=== PATIENT | male | born 1940 | race Caucasian/White ===

== ENCOUNTER 2024-04-28 01:17 | Inpatient (IN) | payer MEDICARE, OTHER, SELFPAY ==
[2024-04-27 22:24] VITALS: BP 140/81
[2024-04-27 22:26] VITALS: BP 140/81; PULSE 135; PULSE 2
[2024-04-27] MEDS: NSS 1000 IV (22:37)
[2024-04-27 22:40] LABS: % Basophils 0.4 % (0-2); % Immature Granulocytes 0.6 % (0-0.5); % Lymphocytes 11.4 % (20.5-51.1); % Monocytes 13.2 % (1.7-9.3); % Neutrophils 73.4 % (42.2-75.2); Absolute Eosinophils 0.1 10^3/uL (0-0.7); Absolute Lymphocytes 0.6 10^3/uL (1.2-3.4); Absolute Monocytes 0.7 10^3/uL (0.1-0.6); Absolute Neutrophils 3.7 10^3/uL (1.4-6.5); Hematocrit 40.2 % (39.0-52.0); Hemoglobin 13.2 g/dL (13.0-18.0); Mean Corp Hgb Conc. 32.8 g/dL (33.0-37.0); Mean Corpuscular Volume 88.4 fL (80.0-94.0); Nucleated Red Blood Cells % 0 % (-); Platelet Count 223 10^3/uL (130-400); Red Blood Cell Count 4.55 10^6/uL (4.70-6.10); Red Cell Dist. Width 13.4 % (11.5-14.5); White Blood Cell Count 5.1 10^3/uL (4.8-10.8)
[2024-04-27] MEDS: OFIRMEV 100 IV (22:51)
[2024-04-27 22:52] LABS: Lactic Acid 3.3 mmol/L (0.7-2.0)
[2024-04-27 22:54] LABS: ALT (SGPT) 12 U/L (0-50); AST (SGOT) 22 U/L (17-59); Albumin 3.6 g/dl (3.5-5.0); Alkaline Phosphatase 71 U/L (38-126); Blood Urea Nitrogen 36 mg/dl (9-20); Calcium 8.6 mg/dl (8.4-10.2); Carbon Dioxide 23 mmol/L (22-30); Chloride 104 mmol/L (98-107); Glucose 164 mg/dl (70-99); Potassium 3.5 mmol/L (3.5-5.1); Sodium 138 mmol/L (135-145); Total Bilirubin 0.4 mg/dl (0.2-1.3); Total Protein 7.1 g/dl (6.3-8.2); eGFR 49.87
[2024-04-27 23:02] LABS: Urine Albumin Trace (Neg - Trace); Urine Bilirubin 1+ (Negative); Urine Character Clear (Clear); Urine Color Yellow; Urine Glucose Negative (Negative); Urine Ketone Trace (Negative); Urine Leukocyte Negative (Negative); Urine Nitrite Negative (Negative); Urine Occult Blood Trace (Negative); Urine Specific Gravity 1.025 (<1.030); Urine Urobilinogen Negative (Neg - 1+)
--- NOTE | 2024-04-27 23:17 | ED.GENMED ---
History of Present Illness
General
Chief Complaint: Breathing Problem
Source: family and ambulance crew
Exam Limitations: clinical condition and dementia
Time Seen by Provider: 04/27/24 22:25
Travel History
Have you had any contact with someone who has COVID-19?: Unable to Answer
Do you have any symptoms of coronavirus? Fever > 100 degrees, chills, cough, shortness of breath, sore throat, loss of taste or smell, muscle aches, or headache?: Unable to Answer
History of Present Illness
History of Present Illness:
83-year-old male sent in for respiratory distress hypoxia. This apparently started a few hours before ER arrival. Patient is normally near unresponsive. Has to be fed to eat. Significant dementia. No other history available.
Past History
Past History
ED Past Medical History: CAD, COPD, CVA, HTN, Hypercholesterolemia, Psychiatric (Anxiety) and Other (Dementia)
ED Past Surgical History: Other
Social History
Tobacco: Former smoker
Alcohol: None
Personal:
Living: with family
Review of Systems
Review of Systems
Unable to obtain full review of systems at this time due to: dementia
All Other Systems: Not applicable
Phy Exam
Physical Exam
Physical Exam:
GENERAL: Near unresponsive. Does not withdraw to pain and stimuli. Does not follow commands. Chronically ill-appearing.
EYE: Orbits normal. Eyes closed
NECK: Supple
CARDIAC: Regular rate and rhythm without any obvious murmurs.
LUNGS: Coarse rhonchi. Mild tachypnea.
ABDOMEN: Soft, without focal tenderness or distention
NEUROLOGICAL: Near unresponsive. Nonfocal however
SKIN: Warm and dry, no rash or lesion, no discoloration, skin intact.
MUSCULOSKELETAL: Chronic edema. Good color
Scores
Heart Failure Risk
Heart Failure Risk Score: Not Applicable
Course
Orders/Labs/Results
Orders:
Orders
04/27/24 22:27
EKG [Electrocardiogram (*1)] Urgent
Reason for Study: Shortness of Breath
EKG- Treatment ONCE
04/27/24 22:29
Electrocardiogram (*1) Urgent
Reason for Study: Other
Other Reason for Exam: Possible Sepsis
Cardiac Monitoring- Treatment ONCE
IV Insert/Care/Rem.- Treatment PRN
Straight cath- Treatment ONCE
CR Chest Portable - 1 View Urgent
Comment:
Reason For Exam: sob
Reason Study Needs to be Portable: Unable to Transport
O2 Therapy [RESP] Urgent
Titrate/Wean O2 to maintain O2 sat greater than (%): 93
Special Instructions: TO MAINTAIN CONTINUOUS O2 SATS > OR = 93%
Pulse Ox/cont/shift [RESP] Urgent
Quantity: 1
Special Instructions: CONTINUOUS
04/27/24 22:30
Electrocardiogram (*1) Urgent
Reason for Study: Other
Other Reason for Exam: sepsis
Cardiac Monitoring- Treatment ONCE
EKG- Treatment ONCE
IV Insert/Care/Rem.- Treatment PRN
0.9% Sodium Chloride 1000 ml [Nss] 1,000 ml IV BOLUS
Acetaminophen 1000MG/100Ml [Ofirmev] 1,000 mg in 100 ml IV ONCE
Acetaminophen IV Indication:: ED Narcotic Naive Pt-ONCE
Pulse Ox/cont/shift [RESP] Urgent
Quantity: 1
04/27/24 22:32
Basic Metabolic Panel Urgent
Complete Blood Count/With Diff Urgent
Comprehensive Metabolic Panel Urgent
Lactic Acid Q4H
Comment: ON ICE, CANCEL 2ND ORDER IF FIRST LACTIC ACID LEVEL <2
Urinalysis Reflex To Culture Urgent
Date Specimen was Collected: 04/27/24
Time Specimen was Collected: 22:30
Urine Microscopic Reflex Cult Urgent
Blood Culture Q30M
ASHLEY Source: Blood/Venous
Specimen Description:
Comment: FROM 2 SEPARATE SITES
Blood Culture Q30M
ASHLEY Source: Blood/Venous
Specimen Description:
Comment: FROM 2 SEPARATE SITES
Urine Culture Urgent
ASHLEY Source: U
Specimen Description:
Date Specimen was Collected: 04/27/24
Time Specimen was Collected: 22:30
04/27/24 23:39
COVID-19 Antigen Urgent
Source: Nasal Swab
Influenza A+B Rapid Molecular Urgent
ASHLEY Source: Nasal Swab
Specimen Description:
04/27/24 23:41
Aztreonam [Azactam] 2,000 mg IV NOW STA
04/28/24 02:30
Lactic Acid Q4H
Comment: ON ICE, CANCEL 2ND ORDER IF FIRST LACTIC ACID LEVEL <2
Abnormal Lab Results
04/27/24
22:32
RBC 4.55 L 10^6/uL
(4.70-6.10)
MCHC 32.8 L g/dL
(33.0-37.0)
Absolute Lymphs (auto) 0.6 L 10^3/uL
(1.2-3.4)
Absolute Monos (auto) 0.7 H 10^3/uL
(0.1-0.6)
Immature Gran % 0.6 H %
(0-0.5)
Lymphocytes % 11.4 L %
(20.5-51.1)
Monocytes % 13.2 H %
(1.7-9.3)
BUN 36 H mg/dl
(9-20)
Creatinine 1.4 H mg/dL
(0.7-1.3)
Glucose 164 H mg/dl
(70-99)
Lactic Acid 3.3 H mmol/L
(0.7-2.0)
Urine Ketones Trace A
(Negative)
Ur Occult Blood Reflex Trace A
(Negative)
Urine Bilirubin 1+ A
(Negative)
Urine RBC 3-6 A /HPF
(0-2)
Urine Bacteria (Reflex) Moderate A
(Negative)
04/27/24 22:32
04/27/24 22:32
Vital Signs
Initial and Last Documented VS:
Initial Vital Signs
Temp Pulse Resp BP Pulse Ox
101.4 F H 142 26 140/81 93
04/27/24 22:24 04/27/24 22:24 04/27/24 22:24 04/27/24 22:24 04/27/24 22:24
Last Documented Vital Signs
Temp Pulse Resp BP Pulse Ox
101.4 F H 114 15 140/81 93
04/27/24 22:24 04/28/24 00:00 04/28/24 00:00 04/27/24 22:26 04/28/24 00:00
MDM/Problems Addressed
Differential Diagnosis Includes:
Patient presents in respiratory distress. Apparently near neurologic baseline. Discussed with daughter. No intubation no aggressive therapy. Most concerned with keeping him comfortable and treating simpler issues. Lactic acid elevated.
*Radiology
Radiology exam reviewed: radiology read reviewed (Negative)
*Pulse Oximetry
Patient hypoxic: yes
*EKG
Interpreted by ED Provider?: Yes
Interpretation: abnormal
Comparison EKG: changes noted
Heart Rate: 135
Rate: tachycardiac
Rhythm: sinus
[place]: normal axis
Interval: normal interval
QRS Pattern: normal QRS
Ischemia: non-specific ST changes
*Donation Worker Interpretation
Rate: tachycardiac
Interpretation: abnormal
Heart Rate: 120
Rhythm: sinus
*Critical Care Note
Total Time (30-74mins, 75-104mins- exclusive of procedures): Not Applicable
Data Reviewed
Review of Other/Old Records Reveals: Labs, Records and Discharge Summary
Update Note
Update Note:
Sepsis/respiratory distress. Will cover with aztreonam. No intubation no aggressive therapy. Changed to high flow nasal cannula
ED Attending Note
-
Portions of this chart may have been created with voice recognition software.� Occasional wrong word or��sound alike� substitutions may have occurred due to the inherent limitations of voice recognition software.
Discharge Plan
Departure
Patient Disposition: Admit
Date of Disposition: 04/27/24
Time of Disposition: 23:42
Presentation/result/management discussed w/ accepting MD/DO: Hospitalist
Discharge Problem:
Respiratory distress, Sepsis, Severe dementia
Prescriptions:
No Action
aspirin 81 MG tablet,chewable
81 mg PO DAILY
acetaminophen [Tylenol] 325 mg Tablet
650 mg PO Q4HPRN PRN (Reason: mild pain/fever>100.4)
melatonin 3 mg Tablet
3 mg PO HS
magnesium hydroxide [Milk of Magnesia] 400 mg/5 mL Suspension
2,400 mg PO HSPRN PRN (Reason: if no bm aftr miralax)
bisacodyl [Dulcolax (bisacodyl)] 10 mg Suppository
10 mg [place] DAILYPRN PRN (Reason: if no bm on 3rd day/if mom is ineffective)
divalproex 125 mg Capsule, Delayed Rel Sprinkle
125 mg PO BID@0830,1830
rivastigmine tartrate 3 mg Capsule
3 mg PO BID
clonazepam 0.5 MG tablet
0.5 mg PO TID
sertraline 50 MG tablet
50 mg PO DAILY
Patient Comments:
04/27/2024: taken w/ 100mg = 150mg
Refresh Classic (PF) 10 DROPS dropperette
1 drops BOTH EYES QID
Ativan Gel
1 applic topical BIDPRN PRN (Reason: anxiety)
ipratropium-albuterol 0.5 mg-3 mg(2.5 mg base)/3 mL solution for nebulization
3 ml INHALATION R Q6
Patient Comments:
04/27/2024: @ 0000,0600,1200,1800
sertraline 100 mg Tablet
100 mg PO DAILY
Patient Comments:
04/27/2024: taken w/ 50mg = 150mg
guaifenesin 100 mg/5 mL Liquid
200 mg PO Q8H
Patient Comments:
04/27/2024: @ 0000,0800,1600
atropine 1 % Drops
2 drp sublingual Q4HPRN PRN (Reason: secretions)
Referrals:
UNKNOWN - PT DOES,NOT KNOW [Family Provider] -
Interventions
Interventions:
*Risk Screen - Suicide Last Done: 04/28/24 00:02
*General Assessment Last Done: 04/28/24 00:02
*Neglect/Abuse Screening Last Done: 04/28/24 00:02
*ED COVID-19 Vaccine History Last Done: 04/28/24 00:02
Discharge Date and Time
Print Language: CONGOLESE
[2024-04-27 23:19] LABS: Urine Bacteria Moderate (Negative); Urine Mucus Few
[2024-04-28] VITALS (16 sets, daily range): BP systolic 97–155; BP diastolic 53–119; BMI 25.4
[2024-04-28 00:01] LABS: COVID-19 Antigen Negative (Negative)
[2024-04-28] MEDS: AZACTAM 2000 MG IV (00:34)
--- NOTE | 2024-04-28 00:39 | HPS.HSE ---
Family Physician
-
Family Physician: NOT KNOW UNKNOWN - PT DOES
Chief Complaint
-
Resp Distress
History of Present Illness
Patient is an 83y M with PMH significant for dementia, ASCVD and COPD who presents to ED from [place] in respiratory distress. Patient reportedly noted to have 'audible gurgling' at MI this evening. Temp = 100, SpO2 in the mid 80s on room air.
Facility discussed with family and patient sent to the ED for further evaluation. Patient has baseline dementia and is unable to contribute to this history.
Patient was initially placed on BiPAP in the ED. He is currently on HFNC with SpO2 in the 90s.
Medical History
Past Medical History
Past Medical History: Reports Other
Additional Past Medical History:
Lewy Body Dementia with Behavioral Disturbance
ASCVD
COPD
Past Surgical History: Reports Other
Additional Past Surgical History:
Unknown
Social History
Unable to obtain full social history at this time due to: Patient Non-verbal
Family History
Family History: Unable to Obtain
Allergies / Home Medications
Allergies reflects when Allergies were last updated in [facility].
Home Medications with original date entered in [facility]
Allergy/Medication List:
Allergies
Allergy/AdvReac Type Severity Reaction Status Date / Time
crab Allergy Unknown Unknown Verified 01/09/23 14:47
amoxicillin trihydrate Allergy Unknown Verified 01/09/23 14:47
[From Augmentin]
erythromycin base Allergy Unknown Verified 01/09/23 14:47
potassium clavulanate Allergy Unknown Verified 01/09/23 14:47
[From Augmentin]
Wbvulmv-QZD-DfA Reductase Allergy 'muscle Verified 01/09/23 14:47
Inhibitor pain'
[Ttrrcys-Foc-Bsj Reductase
Inhibitor]
Home Medications
aspirin 81 mg chewable tablet 81 mg PO DAILY Blood clot prevention/tx 09/05/18
acetaminophen 325 mg tablet (Tylenol) 650 mg PO Q4HPRN PRN mild pain/fever>100.4 01/09/23
bisacodyl 10 mg rectal suppository (Dulcolax (bisacodyl)) 10 mg VA DAILYPRN PRN if no bm on 3rd day/if mom is ineffective 01/09/23
clonazepam 0.5 mg tablet 0.5 mg PO TID Mental Health/Anxiety 01/09/23
divalproex 125 mg capsule,delayed release sprinkle 125 mg PO BID@0830,1830 Seizures 01/09/23
magnesium hydroxide 400 mg/5 mL oral suspension (Milk of Magnesia) 2,400 mg PO HSPRN PRN if no bm aftr miralax 01/09/23
melatonin 3 mg tablet 3 mg PO HS Sleep 01/09/23
polyvinyl alcohol-povidone (PF) 1.4 %-0.6 % eye drops in a dropperette (Refresh Classic (PF)) 1 drops BOTH EYES QID Eye condition 01/09/23
rivastigmine tartrate 3 mg capsule 3 mg PO BID Neurological Condition 01/09/23
sertraline 50 mg tablet 50 mg PO DAILY Depression 01/09/23
Ativan Gel 1 applic topical BIDPRN PRN anxiety 04/27/24
atropine 1 % eye drops 2 drp sublingual Q4HPRN PRN secretions 04/27/24
guaifenesin 100 mg/5 mL oral liquid 200 mg PO Q8H 04/27/24
ipratropium 0.5 mg-albuterol 3 mg (2.5 mg base)/3 mL nebulization soln 3 ml inhalation R Q6 04/27/24
sertraline 100 mg tablet 100 mg PO DAILY 04/27/24
Review of Systems
-
Unable to obtain full review of systems at this time due to: Patient Non-verbal
Physical Exam
Vital Signs
Vital Signs
Temp Pulse Resp BP Pulse Ox
101.4 F H 114 15 140/81 93
04/27/24 22:24 04/28/24 00:00 04/28/24 00:00 04/27/24 22:26 04/28/24 00:00
Physical Exam
General: Other (83y M is awake and appears slightly restless / /agitated - improved from initial arrival.)
HEENT: Other (Dry MM. Neck supple.)
Respiratory: Other (Coarse breath sounds bilaterally - R > L. No rales / wheezing.)
Cardiac: S1/S2; No Murmur
GI: Soft, Non Tender, Non Distended and Normal Bowel Sounds
Musculoskeletal: No Clubbing, No Cyanosis and No Edema
Neuro: Awake and Other (Moves all extremities spontaneously Restless.); No Oriented
Psych: Agitated
Laboratory Results
-
04/27/24 22:32
04/27/24 22:32
Laboratory Results
Lactic Acid 3.3 mmol/L (0.7-2.0) H 04/27/24 22:32
Total Bilirubin 0.4 mg/dl (0.2-1.3) 04/27/24 22:32
AST 22 U/L (17-59) 04/27/24 22:32
ALT 12 U/L (0-50) 04/27/24 22:32
Alkaline Phosphatase 71 U/L (38-126) 04/27/24 22:32
Impression/Plan
-
A/P: Patient is an 83y M with PMH significant for advanced dementia with behavioral disturbance who presents to ED from local [place] for evaluation of respiratory distress.
Acute Hypoxemic Respiratory Failure
- Admit for further evaluation and treatment.
- SpO2 into the 80s on room air and supplemental O2.
- Now improved on HFNC.
- Try to avoid BiPAP given agitation.
- Suspect abrupt symptoms secondary to aspiration (see below).
- Titrate O2 as able.
- Follow for any new / worsening symptoms.
Aspiration Pneumonia / Pneumonitis
Lactic Acidosis
- Patient with coarse breath sounds, temp = 101.4 and hypoxemia as noted above.
- CXR to me appears to show increased markings R > L which correlate with exam.
- IV abx with ceftriaxone and metronidazole for possible aspiration.
- Supportive care including antipyretics, IVFs, etc.
- Follow lactate for improvement.
- Speech therapy evaluation.
- Aspiration precautions.
CKD
- SCr = 1.4 with prior values ranging from 1.0 - 1.5.
- Follow for changes over the next 48 hours on IVFs.
Lewy Body Dementia with Behavioral Disturbance
- Agitation on arrival is currently improved.
- Continue usual outpatient med regimen.
- Add quetiapine as needed for agitation.
ASCVD
- History of KS, CVA, etc
- Continue ASA.
COPD
- No wheezing on exam.
- Continue DuoNebs ATC and add albuterol PRN.
DVT Prophylaxis: SCDs
Code Status: DNR
[2024-04-28] MEDS: DUONEB 3 ML INH ×4 (01:56→19:39)
[2024-04-28] MEDS: LR 1000 IV ×2 (02:25→13:48)
[2024-04-28] MEDS: FLAGYL 500 MG 100 IV ×3 (02:26→17:14)
[2024-04-28 03:44] LABS: Lactic Acid 4.4 mmol/L (0.7-2.0)
[2024-04-28] MEDS: NSS 1000 IV (04:00)
[2024-04-28 04:43] LABS: Hematocrit 38.2 % (39.0-52.0); Hemoglobin 12.1 g/dL (13.0-18.0); Mean Corp Hgb Conc. 31.7 g/dL (33.0-37.0); Mean Corpuscular Hgb 29.4 pg (27.0-31.0); Mean Corpuscular Volume 92.9 fL (80.0-94.0); Mean Platelet Volume 9.9 fL (7.4-10.4); Platelet Count 215 10^3/uL (130-400); Red Blood Cell Count 4.11 10^6/uL (4.70-6.10); Red Cell Dist. Width 13.5 % (11.5-14.5)
[2024-04-28 05:12] LABS: Blood Urea Nitrogen 33 mg/dl (9-20); Calcium 8.1 mg/dl (8.4-10.2); Carbon Dioxide 23 mmol/L (22-30); Chloride 104 mmol/L (98-107); Glucose 117 mg/dl (70-99); Potassium 3.8 mmol/L (3.5-5.1); Sodium 143 mmol/L (135-145); eGFR 54.51
--- NOTE | 2024-04-28 06:20 | PTCARENOTE ---
Received patient awake, blinking spontaneously and tracking. Not oriented, not following commands, making incomprehensible sounds, gurgled speech. Spastic/tremulous movements with stimulation and at rest. Normal sinus, 80s-90s. BP stable, 103/89.
Palpable radial and pedal pulses bilaterally. SCDs on. Moist, nonproductive cough. On high flow nasal cannula, 40 liters, 45% saturating 98%. Lung sounds very coarse and rhonchorous throughout. Hypoactive bowel sounds, abdomen soft and round.
Incontinent. Right elbow skin tear present on admission, foam applied. Foam on sacrum applied for protection. Left forearm #20 and right hand #20 patent, WNL. LR @ 100 mls/hour gtt ongoing per order. Hourly rounding and patient safety checks
ongoing, bed alarm on.
[2024-04-28 06:30] LABS: Lactic Acid 3.5 mmol/L (0.7-2.0)
[2024-04-28] MEDS: ROCEPHIN 1000 MG IV (07:28)
[2024-04-28] MEDS: STERILE WATER FOR INJECTION 10 ML IV (07:28)
--- NOTE | 2024-04-28 08:00 | PTCARENOTE ---
PT received in bed, awake, does not respond to verbal commands, does not track with eyes, verbal communication is garbled speech at inappropriate times, ( not in response to questions), spastic movements noted especially after any sort of care, NSR
1st degree AV block, + pulses no edema, PT received on HiFlow 40L/45%, Respiratory placed PT on 8L MF with 98% O2, PT has audible gurgling with occasional harsh weak moist cough, coarse rhonchi T/O, oral suctioning does not bring any phlegm, abdomen
soft, NT, hypoactive BS, PT in continent of urine, scattered bruising noted to B/L arms, skin tear noted to right elbow, foam protecting elbow, sacral foam in place for protection, Left FA and right hand INT, flushed and patent
--- NOTE | 2024-04-28 09:05 | PTCARENOTE ---
PT deep suctioned for small amount of thick white secretions, O2 saturation increased to 95%, was 88%
--- NOTE | 2024-04-28 09:53 | CM ---
Spoke with patient's primary contact/daughter, Anabella Villa #[phone]
Pharmacy: [facility]
Family Physician verified with Vilma @ [facility]: Alfredito Hess
Per daughter, patient has resided @ [facility] for the past 5 years
Patient has dementia; requires total care; is wheelchair bound; and incontinent
Bed @ [facility] ON HOLD per Vilma @ facility
Plan: Will return to LTC facility when medically stable
[2024-04-28 10:42] LABS: Lactic Acid 1.3 mmol/L (0.7-2.0)
--- NOTE | 2024-04-28 11:47 | PTCARENOTE ---
PT's oral temp 101.3,this nurse uncomfortable with oral meds until speech evaluates and clears, notified Dr Hudson, awaiting orders
[2024-04-28] MEDS: OFIRMEV 100 IV (12:22)
--- NOTE | 2024-04-28 12:39 | W.PN.HOSP.TC ---
Today's Communication/Plan
-
Continue antibiotics
Await cultures
Aspiration precautions
Wean oxygen as tolerated
Assessment / Plan
Assessment / Plan
83-year-old male with respiratory distress. He was also noted to have audible gurgling at [facility] and a fever. Saturations were in the mid 80s
EKG reviewed by me-SVT, nonspecific ST-T changes ST depression in anterior leads
CVS: S1-S2 normal
Chest:coarse BS bilateral
Abdomen: Soft, NT / Bowel sounds present
Extremities: No edema, normal pulses
RETAIL ASSISTANT MANAGER:Dementia, restless
# Acute hypoxic respiratory failure
Secondary to aspiration pneumonitis
Saturations were in the 80s on arrival
Patient improved on high flow nasal cannula-avoiding BiPAP given agitation
Titrate and wean oxygen down as tolerated
Continue ceftriaxone and Flagyl
Speech therapy evaluation- NPO today
Aspiration precautions with head of bed elevation
Blood cultures and urine cultures pending
# Lactic acidosis-resolved
# Acute kidney injury-creatinine improving
# Lewy body dementia with behavioral disturbance
On rivastigmine-change to patch
On as needed Seroquel- hold as NPO
# Hyperlipidemia-statin intolerant
# Coronary artery disease-[place] in 2009-aspirin
# History of CVA-October 2014 status post tPA-aspirin
TIA in 2015
# COPD
# Ambulatory dysfunction
# Neurofibromatosis
# Anxiety and depression-clonazepam, divalproex, sertraline- when can take PO
# Insomnia-continue melatonin
# Ex Smoker
# DVT prophylaxis
# DNR
D/W RN
D/W Pharmacy
Meds which can be changed to parenteral route were changed.
Discussed with patient's daughter. She realizes that that has dementia. They just want him to be comfortable at this point. No heroics. Patient is a DNR
time spent over 50 min
Anticipated Discharge: > 48 hours
Subjective/Interval History
-
Date of Service: April 28, 2024
Objective Data
-
Labs:
Laboratory Results
04/28/24
04:05
WBC 7.0
Hgb 12.1 L
Hct 38.2 L
Plt Count 215
Sodium 143
Potassium 3.8
Chloride 104
Carbon Dioxide 23
BUN 33 H
Creatinine 1.3
Glucose 117 H
Calcium 8.1 L
Vital Signs:
Vital Signs
Temp Pulse Resp BP Pulse Ox
103.2 F H 94 22 121/99 91
04/28/24 12:15 04/28/24 09:00 04/28/24 09:00 04/28/24 09:00 04/28/24 09:00
I&O
04/27/24 04/28/24 04/29/24
06:59 06:59 06:59
Intake Total 600 / 600
Balance 600 / 600
--- NOTE | 2024-04-28 14:29 | PTOTSP ---
Speech Therapy Assessment
Patient is high risk for aspiration as he was unable to elicit a swallow and is demonstrating poor secretion management.
Recommend
1. NPO
2. Non-oral meds.
3. Not a candidate for ARHP as patient unable to elicit a swallow.
4. Frequent oral care with suction toothbrush
5. Reassess daily for PO readiness vs alternative nutrition vs goals of care discussion with family.
[2024-04-28 14:56] LABS: Troponin I 0.063 ng/ml
[2024-04-28] MEDS: EXELON PATCH 9.5 MG TRANSDERM (14:58)
--- NOTE | 2024-04-28 15:45 | PTCARENOTE ---
PT' s temp responded to Renzo, temp 100.8, no change in PT's assessment, daughter Jie updated by phone, all questions and concerns addressed
--- NOTE | 2024-04-28 16:43 | PTCARENOTE ---
PT has had no urine output, Bladder scanned for 453 ml, using sterile technique PT was straight cath for 400 ml layla urine, repositioned PT for comfort
[2024-04-28] MEDS: DEPACON 51.25 MG IV (18:16)
--- NOTE | 2024-04-28 20:23 | PTCARENOTE ---
Received patient in bed, spastic movements, not following commands, not tracking with eyes. Garbled speech, agitated with care. Normal sinus, 70s. BP stable, rectal temp 100. SCDs on, palpable radial and pedal pulses. Moist, occasional, weak,
nonproductive cough. Coarse and rhonchorous throughout. Thick, bruner, white, secretions, small amount. On 4 liters, saturating 100%. Abdomen soft, positive bowel sounds. Incontinent, bladder scanning and straight cathing per protocol. Right elbow skin
tear present on admission, foam intact. PIVs WNL patent. Hourly rounding and patient safety checks ongoing.
[2024-04-28 20:38] LABS: Troponin I 0.053 ng/ml
[2024-04-29] VITALS (11 sets, daily range): BP systolic 105–161; BP diastolic 51–146; BMI 25.6
[2024-04-29] MEDS: FLAGYL 500 MG 100 IV ×3 (01:46→17:12)
[2024-04-29] MEDS: ATROPINE SULFATE 1% DROPS 2 DROP SL (01:46)
[2024-04-29] MEDS: TYLENOL/FEVERALL RECTAL (01:47)
[2024-04-29] MEDS: OFIRMEV 100 IV (03:17)
[2024-04-29] MEDS: LR 1000 IV (04:06)
[2024-04-29] MEDS: DUONEB 3 ML INH ×4 (04:36→19:41)
[2024-04-29] MEDS: DEPACON 51.25 MG IV ×2 (09:00→17:00)
[2024-04-29] MEDS: ASPIRIN 300 MG RECTAL (09:00)
[2024-04-29] MEDS: STERILE WATER FOR INJECTION 10 ML IV (09:00)
[2024-04-29] MEDS: EXELON PATCH 9.5 MG TRANSDERM (09:00)
[2024-04-29] MEDS: ROCEPHIN 1000 MG IV (09:00)
[2024-04-29 10:44] LABS: Hematocrit 31.6 % (39.0-52.0); Hemoglobin 10.3 g/dL (13.0-18.0); Mean Corp Hgb Conc. 32.6 g/dL (33.0-37.0); Mean Platelet Volume 9.1 fL (7.4-10.4); Platelet Count 199 10^3/uL (130-400); Red Blood Cell Count 3.55 10^6/uL (4.70-6.10); Red Cell Dist. Width 13.7 % (11.5-14.5); White Blood Cell Count 4.8 10^3/uL (4.8-10.8)
[2024-04-29 11:07] LABS: Blood Urea Nitrogen 23 mg/dl (9-20); Carbon Dioxide 27 mmol/L (22-30); Chloride 105 mmol/L (98-107); Estimated Creatinine Clearance 60 ml/min; Glucose 91 mg/dl (70-99); Magnesium 1.7 mg/dl (1.6-2.3); Potassium 3.8 mmol/L (3.5-5.1); Sodium 140 mmol/L (135-145); eGFR > 60.00
--- NOTE | 2024-04-29 11:09 | PN.CDI ---
Addendum entered and electronically signed by Cris Hudson MD 04/29/24 17:19:
Documentation is complete at this time.
Original Note:
CDI
- -
CDI:
Physician Documentation Request
Admit Date: 04/28/24 01:17
Dear Doctor Becca,
Per ED record , pt sent for respiratory distress, hypoxia.
ED discharge problem list 'respiratory distress, sepsis, severe dementia' - Sepsis note mentioned in subsequent documentation.
Progress notes state 'Acute hypoxic respiratory failure secondary to aspiration pneumonitis'
/ lactic acid 3.3 (high of 4.4 04/28)
04/27 wbc 5.1
04/27 presenting temp 101.4 (tmax 103.3 04/28)
04/27 presenting heart rate 142
presenting respiratory rate 26
Please clarify which of the following most accurately describes the status of the patient's infection:
Sepsis
- Systemic manifestations of infection, with 2 or more SIRS criteria which include:
- Fever >100.4 degrees F or hypothermia < 96.8 degrees F
- Leukocytosis - WBC > 12,000 or leukopenia - WBC < 4,000 or > 10% bands
- Tachycardia > 90 beats per minute
- Tachypnea - RR > 20 breaths per minute or PaCO2 , 32mmHg
Source: Merck Manual 2013
Severe Sepsis
- Sepsis with associated acute organ dysfunction, such as renal or respiratory failure
Sepsis Ruled out
Other
Use of terms such as suspected, likely, concern for, or probable (associated with a specific diagnosis that is being evaluated, monitored, or treated as if it exists) are acceptable and can be coded in the inpatient setting, when documented at the
time of discharge.
Thank you,
Ysabel Muniz RN, BSN
CDI Specialist
tiger text
Please use your independent medical judgment in providing your response.
--- NOTE | 2024-04-29 12:02 | W.PN.HOSP.TC ---
Today's Communication/Plan
-
NPO
Maintenance IVF
Aspiration precautions
Antibiotics
Repeat chest x-ray
Assessment / Plan
Assessment / Plan
83-year-old male with respiratory distress. He was also noted to have audible gurgling at longterm and a fever. Saturations were in the mid 80s
EKG reviewed by me-SVT, nonspecific ST-T changes ST depression in anterior leads
CVS: S1-S2 normal
Chest:coarse BS bilateral, upper
Abdomen: Soft, NT / Bowel sounds present
Extremities: No edema, normal pulses
RF MANAGER:Dementia, restless
# Acute hypoxic respiratory failure
Secondary to aspiration pneumonitis
Saturations were in the 80s on arrival
Patient improved on high flow nasal cannula-avoiding BiPAP given agitation
Titrate and wean oxygen down as tolerated
Continue ceftriaxone and Flagyl
Speech therapy evaluation- NPO recommended
Aspiration precautions with head of bed elevation
Blood cultures and urine cultures pending
# Lactic acidosis-resolved
# Acute kidney injury-creatinine improving
# Lewy body dementia with behavioral disturbance
On rivastigmine-change to patch
On as needed Seroquel- hold as NPO
# Hyperlipidemia-statin intolerant
# Coronary artery disease-[place] in 2009-aspirin
# History of CVA-October 2014 status post tPA-aspirin
TIA in 2015
# COPD
# Ambulatory dysfunction
# Neurofibromatosis
# Anxiety and depression-clonazepam, divalproex, sertraline- when can take PO
# Insomnia-continue melatonin
# Ex Smoker
# DVT prophylaxis
# DNR
D/W RN
D/W Speech at bed side
Meds which can be changed to parenteral route were changed.
D/W Daughter on the phone in detail. Regarding the patient failed speech swallow evaluation yesterday and today. He is extremely confused and has stranger anxiety when we are trying to position him to listen to him or examine him. Daughter
realizes that bring him back and forth from hospital to longterm and vice versa is not at his best interest.
I brought up the subject of hospice which she wants to talk to her sister and brother.
In the meantime we will repeat a chest x-ray, see how he does in the next 24 hours and have speech reevaluate him again tomorrow.
Keep n.p.o. for now.
Time spent 52 min
Anticipated Discharge: > 48 hours
Subjective/Interval History
-
Date of Service: April 29, 2024
Objective Data
-
Labs:
Laboratory Results
04/29/24
10:37
WBC 4.8
Hgb 10.3 L
Hct 31.6 L
Plt Count 199
Sodium 140
Potassium 3.8
Chloride 105
Carbon Dioxide 27
BUN 23 H
Creatinine 0.9
Glucose 91
Calcium 8.0 L
Vital Signs:
Vital Signs
Temp Pulse Resp BP Pulse Ox
99.1 F 65 14 139/63 95
04/29/24 11:18 04/29/24 07:30 04/29/24 07:30 04/29/24 06:00 04/29/24 07:30
I&O
04/28/24 04/29/24 04/30/24
06:59 06:59 06:59
Intake Total 5 / 2325
Output Total 400 / 400
Balance 1924 / 1924
[2024-04-29] MEDS: MAGNESIUM SULFATE 102 GRAMS IV (13:00)
[2024-04-29] MEDS: D5/0.45%NACL 1000 IV (13:36)
--- NOTE | 2024-04-29 13:41 | CM ---
CM following re: discharge planning.
Reviewed pt's chart, met with pt. Per MD, continue NPO, IVF, Aspiration precautions continue antibiotics, continue supportive care
Pt is a intermediate manager care resident at [facility], on Medicaid bed hold, requires total care.
[facility] nursing report: [phone]
Discharge instructions fax: [phone]
D/C plan: return back to [facility] when medically stable.
CM will follow to assist pt with discharge to [facility].
--- NOTE | 2024-04-29 13:51 | PTCARENOTE ---
Pt received this am, complete assessment done. Pt with confused/forgetful behavior. Pt spoken to with soft voice to help calm pt, with turning and physical care, Pt sometimes will swing arms, punching when confused. HR SR, core temp 99.0. LR d/c'd,
and D51/2 NS started at 40 ml/hr. BMP, CBD, and mag level drawn. Mg =1.7, Mag IV replacement infusing now as per Dr Hudson . Seq teds on bilat. Pt on 3l nc, O2 sat=96%. Pt suctioned mult times this am for thick sl bruner secretions. Pt turned q 2hrs.
Pt incont of stool and urine, pt cleaned, new attends on. Sacral foam on buttocks for protection.
[2024-04-29] MEDS: ATIVAN 0.25 MG IV (14:10)
--- NOTE | 2024-04-29 14:37 | PTCARENOTE ---
Complete CHG bath given, mouth care done, carroll care done. Pt then had an incontinent soft formed brown BM. Carroll care, new attends, and all new linen to bed. Pt turned and appears comfortable.
[2024-04-29] MEDS: LOVENOX 40 MG SC (17:12)
--- NOTE | 2024-04-29 18:23 | PTCARENOTE ---
Mouth care done. Pt changed for incontinence mod amt of urine, carroll care done, and new attends placed on. Pt con't with confusion, and periods of kicking or punching when cleaned. Pt turned and brought down to new room IMU [id number]. Report given to
Donya BIGGS.
--- NOTE | 2024-04-29 18:29 | PTCARENOTE ---
Received report from CAREERS ADVISER. Patient transferred to room 1490. Assessment unchanged from previous RN's. NSR, HR 60s on telemetry. Bed alarm on and monitoring.
--- NOTE | 2024-04-29 22:16 | PTCARENOTE ---
Report received from previous shift RN [id number]. Pt received in bed, awake/alert/?oriented. Pt generally nonverbal, pt will occasionally speak one random word, garbled speech/wet sounding voice quality. Pt becomes agitated/combative with care; pt calm
but restless when not being touched. Pt with generalized spastic movements/tremors. Lung sounds w coarse scattered rhonchi throughout, oc weak moist cough noted, pox 93-95% on 3L O2 nasal cannula. Telemetry rhythm reveals SR, HR 60-70's, no edema
noted, palpable peripheral pulses present, knee high SCDs in use per order. +BS, abdomen soft nondistended, NPO status maintained. Incontinent bowel/bladder. Skin as documented. R hand int capped, L FA int with IVF per order. Complete CHG bath and
incontinence care provided. Repositioning pt Q2H for skin integrity. Bed alarm on and monitoring for pt safety. Call wilhelm within reach, safe environment maintained. Will monitor closely.
[2024-04-30] VITALS (11 sets, daily range): BP systolic 114–177; BP diastolic 58–154; BMI 25.6
[2024-04-30] MEDS: ATIVAN 0.25 MG IV (01:15)
[2024-04-30] MEDS: FLAGYL 500 MG 100 IV ×3 (01:17→17:58)
[2024-04-30] MEDS: NSS (PRESERVATIVE FREE) 0.125 ML IV (01:17)
[2024-04-30] MEDS: DUONEB 3 ML INH ×4 (01:30→20:37)
[2024-04-30] MEDS: FLUSH (NSS) 2 FLUSH IV (02:08)
[2024-04-30] MEDS: MORPHINE SULFATE 2 MG IV (02:08)
[2024-04-30] MEDS: TYLENOL/FEVERALL 650 MG RECTAL (02:58)
--- NOTE | 2024-04-30 03:21 | PTCARENOTE ---
Pt with low urine output this shift. Bladder scan performed, result 213 ml. #25 condom cath reapplied after prior one dislodged.
Pt remains restless in bed. PRN medications administered as ordered.
Will continue to monitor closely.
[2024-04-30 03:43] LABS: Hematocrit 31.2 % (39.0-52.0); Mean Corp Hgb Conc. 32.1 g/dL (33.0-37.0); Mean Corpuscular Hgb 29.3 pg (27.0-31.0); Mean Corpuscular Volume 91.5 fL (80.0-94.0); Mean Platelet Volume 9.3 fL (7.4-10.4); Platelet Count 212 10^3/uL (130-400); Red Blood Cell Count 3.41 10^6/uL (4.70-6.10); Red Cell Dist. Width 13.5 % (11.5-14.5); White Blood Cell Count 5.5 10^3/uL (4.8-10.8)
[2024-04-30 04:14] LABS: Blood Urea Nitrogen 21 mg/dl (9-20); Calcium 7.9 mg/dl (8.4-10.2); Carbon Dioxide 28 mmol/L (22-30); Chloride 105 mmol/L (98-107); Estimated Creatinine Clearance 68 ml/min; Glucose 93 mg/dl (70-99); Sodium 139 mmol/L (135-145); eGFR > 60.00
[2024-04-30] MEDS: DEPACON 51.25 MG IV ×2 (09:06→17:03)
[2024-04-30] MEDS: EXELON PATCH 9.5 MG TRANSDERM (09:07)
[2024-04-30] MEDS: STERILE WATER FOR INJECTION 10 ML IV (09:07)
[2024-04-30] MEDS: ROCEPHIN 1000 MG IV (09:07)
[2024-04-30] MEDS: ASPIRIN 300 MG RECTAL (09:08)
--- NOTE | 2024-04-30 10:29 | W.PN.HOSP.TC ---
Addendum entered and electronically signed by Cris Hudson MD 05/03/24 07:40:
SVT
Non ischemic myocardial injury
Original Note:
Today's Communication/Plan
-
Continue current medicines
Add Decadron because of rhonchi
Await speech reevaluation today-I do not have optimism that he will pass speech eval
Await family decision regarding goals of care
Assessment / Plan
Assessment / Plan
83-year-old male with respiratory distress. He was also noted to have audible gurgling at intermediate and a fever. Saturations were in the mid 80s
CVS: S1-S2 normal
Chest:coarse BS bilateral, upper , rhonchi coarse B/L
Abdomen: Soft, NT / Bowel sounds present
Extremities: No edema, normal pulses
CUSTOMER PROFESSIONAL:Dementia, restless
# Acute hypoxic respiratory failure
Secondary to aspiration pneumonitis
Saturations were in the 80s on arrival
Patient improved on high flow nasal cannula-avoiding BiPAP given agitation
Titrate and wean oxygen down as tolerated
Continue ceftriaxone and Flagyl
Speech therapy evaluation- NPO recommended
Aspiration precautions with head of bed elevation
Blood cultures and urine cultures neg
With rhonchi I have added low-dose of steroids
# Lactic acidosis-resolved
# Acute kidney injury-creatinine improving
# Lewy body dementia with behavioral disturbance
On rivastigmine-changed to patch
On as needed Seroquel- hold as NPO
# Hyperlipidemia-statin intolerant
# Coronary artery disease-[place] in 2009-aspirin rectal
# History of CVA-October 2014 status post tPA-aspirin rectal
TIA in 2015
# COPD
# Ambulatory dysfunction
# Neurofibromatosis
# Anxiety and depression-clonazepam, sertraline- when can take PO
Depakote changed to IV
# Insomnia-continue melatonin
# Ex Smoker
# DVT prophylaxis
# DNR
D/W RN
Meds which can be changed to parenteral route were changed.
04/29/24-D/W Daughter on the phone in detail. Regarding the patient failed speech swallow evaluation yesterday and today. He is extremely confused and has stranger anxiety when we are trying to position him to listen to him or examine him. Daughter
realizes that bring him back and forth from hospital to intermediate and vice versa is not at his best interest.
I brought up the subject of hospice which she wants to talk to her sister and brother.
In the meantime we will repeat a chest x-ray, see how he does in the next 24 hours and have speech reevaluate him again tomorrow.
Keep n.p.o. for now.
Anticipated Discharge: > 48 hours
Subjective/Interval History
-
Date of Service: April 30, 2024
Objective Data
-
Labs:
Laboratory Results
04/30/24
03:34
WBC 5.5
Hgb 10.0 L
Hct 31.2 L
Plt Count 212
Sodium 139
Potassium 4.0
Chloride 105
Carbon Dioxide 28
BUN 21 H
Creatinine 0.8
Glucose 93
Calcium 7.9 L
Vital Signs:
Vital Signs
Temp Pulse Resp BP Pulse Ox
97.4 F 66 20 140/66 95
04/30/24 07:39 04/30/24 07:32 04/30/24 07:32 04/30/24 06:00 04/30/24 07:32
I&O
04/29/24 04/30/24 05/01/24
06:59 06:59 06:59
Intake Total 2325 / 2400 1155 / 1155
Output Total 400 / 400 85 / 85
Balance 1924 / 1999 1070 / 1070
[2024-04-30] MEDS: DECADRON 2 MG IV ×2 (11:01→17:58)
[2024-04-30 11:05] LABS: Magnesium 1.8 mg/dl (1.6-2.3)
[2024-04-30] MEDS: D5/0.45%NACL 1000 IV (16:34)
[2024-04-30] MEDS: LOVENOX 40 MG SC (17:58)
[2024-05-01] VITALS (15 sets, daily range): BP systolic 88–174; BP diastolic 52–145; BMI 25.0
[2024-05-01] MEDS: FLAGYL 500 MG 100 IV ×3 (01:01→18:48)
[2024-05-01] MEDS: DUONEB 3 ML INH ×3 (01:48→19:54)
[2024-05-01] MEDS: DECADRON 2 MG IV ×2 (02:42→10:44)
[2024-05-01] MEDS: MORPHINE SULFATE 2 MG IV ×2 (05:33→15:34)
--- NOTE | 2024-05-01 05:37 | PTCARENOTE ---
Received Pt at shift change, resting comfortably in bed. Grossly incontinent of bowel and bladder. BM x 3 overnight; Pt severely confused with garbled speech. Will follow some simple commands; Can get combative at times. Bilateral mitts removes
overnight, no further issues. Will continue to monitor and assess.
[2024-05-01] MEDS: STERILE WATER FOR INJECTION 10 ML IV (08:13)
[2024-05-01] MEDS: ROCEPHIN 1000 MG IV (08:13)
[2024-05-01] MEDS: DEPACON 51.25 MG IV ×2 (08:14→17:31)
[2024-05-01] MEDS: ASPIRIN 300 MG RECTAL (08:14)
[2024-05-01] MEDS: EXELON PATCH 9.5 MG TRANSDERM (08:14)
--- NOTE | 2024-05-01 10:30 | PTCARENOTE ---
Received patient this AM confused, restless,agitated and combative. Unable to calm down. Patient punching at staff and spitting. Order obtained for bilateral wrist restraint/4 side rails. Will see if family can come in. Vitals stable. Will monitor
frequently.
[2024-05-01] MEDS: FLUSH (NSS) 3 FLUSH IV (10:43)
--- NOTE | 2024-05-01 11:56 | PTCARENOTE ---
Spoke to patient's daughter Jie. She was going to call her sister and discuss hospice for their father.
--- NOTE | 2024-05-01 14:21 | W.PN.HOSP.TC ---
Today's Communication/Plan
-
stop steroids
haldol iv prn
opting for hospice - awaitng cm steps
Assessment / Plan
Assessment / Plan
83-year-old male with respiratory distress. He was also noted to have audible gurgling at [facility] and a fever. Saturations were in the mid 80s
CVS: S1-S2 normal
Chest:coarse BS bilateral, upper , rhonchi coarse B/L
Abdomen: Soft, NT / Bowel sounds present
Extremities: No edema, normal pulses
PSYCHOLOGIST ENGINEERING:Dementia, restless
# Acute hypoxic respiratory failure
Secondary to aspiration pneumonitis
Saturations were in the 80s on arrival
Patient improved on high flow nasal cannula-avoiding BiPAP given agitation
Titrate and wean oxygen down as tolerated
Continue ceftriaxone and Flagyl
Speech therapy evaluation- NPO recommended
Aspiration precautions with head of bed elevation
Blood cultures and urine cultures neg
With rhonchi I have added low-dose of steroids
# Lactic acidosis-resolved
# Acute kidney injury-creatinine improving
# Lewy body dementia with behavioral disturbance
On rivastigmine-changed to patch
On as needed Seroquel- hold as NPO
# Hyperlipidemia-statin intolerant
# Coronary artery disease-[place] in 2009-aspirin rectal
# History of CVA-October 2014 status post tPA-aspirin rectal
TIA in 2015
# COPD
# Ambulatory dysfunction
# Neurofibromatosis
# Anxiety and depression-clonazepam, sertraline- when can take PO
Depakote changed to IV
# Insomnia-continue melatonin
# Ex Smoker
# DVT prophylaxis
# DNR
D/W RN
Meds which can be changed to parenteral route were changed.
04/29/24-D/W Daughter on the phone in detail. Regarding the patient failed speech swallow evaluation yesterday and today. He is extremely confused and has stranger anxiety when we are trying to position him to listen to him or examine him. Daughter
realizes that bring him back and forth from hospital to [facility]pc and vice versa is not at his best interest.
I brought up the subject of hospice which she wants to talk to her sister and brother.
In the meantime we will repeat a chest x-ray, see how he does in the next 24 hours and have speech reevaluate him again tomorrow.
Keep n.p.o. for now.
04/30 - family opting for hospice; i have engaged cm and still awaiting futher steps; spoke to daughter; opting for comfort - but want to confirm with sister; ok with dcing steroids but want to wait to talk to her sister regarding abx. I added haldol
PRN. recommending stopping all interventions and focusing on comfort.
Total time spent on today's encounter was 50 minutes which included time spent in counseling the patient/family regarding diagnosis and treatment plan as listed above, goals of care, and symptom management. Case was discussed with nursing staff,
specialists, and care coordinators/case management. All labs and imaging personally reviewed by me. Remainder the time spent in detailed review of previous records, lab data, imaging, and other medical provider documentation.
Anticipated Discharge: Within 24 hours
Subjective/Interval History
-
Date of Service: May 01, 2024
Family opting for hospice
Objective Data
-
Vital Signs:
Vital Signs
Temp Pulse Resp BP Pulse Ox
98.7 F 81 16 132/78 95
05/01/24 11:10 05/01/24 13:00 05/01/24 13:00 05/01/24 12:01 05/01/24 13:00
I&O
04/30/24 05/01/24 05/02/24
06:59 06:59 06:59
Intake Total 1155 / 1155 1160 / 1160 150 / 150
Output Total 85 / 85 250 / 250
Balance 1070 / 1070 910 / 910 150 / 150
Review of Systems
-
Unable to obtain full review of systems at this time due to: Other (confusion )
Physical Exam
-
General: Appears Chronically Ill and Other (encephalopathic )
HEENT: Normocephalic and Atraumatic
Respiratory: Non Labored Respirations and Decreased Breath Sounds
Cardiac: Regular Rhythm and S1/S2
Breast: Deferred by me
GI: Soft, Nontender and Nondistended
Rectal: Deferred by Provider
Genito-urinary: Deferred by me
Musculoskeletal: No Edema
Skin: Warm
Neuro: Other (confused, moaning)
Data Reviewed
-
Total Time Spent with Patient (in minutes): 40
Medical Tests (Nuc Med, Echo etc): Report Reviewed by me
Labs: Labs Reviewed by me (Stool for C. difficile negative from yesterday/count now stable at 6.1 hemoglobin stable 12.1)
[2024-05-01] MEDS: DUONEB INH (14:40)
--- NOTE | 2024-05-01 14:44 | CM ---
SW spoke with daughter regarding hospice and made referral.
SW spoke with liaison who will follow up with referral and set up for return to [facility] with hospice services.
[2024-05-01] MEDS: HALDOL 2 MG IV (15:06)
--- NOTE | 2024-05-01 15:12 | HOSPNOTE ---
Referral received. Reviewed chart. Patient is currently in restraints for uncontrolled agitation. Attempting to medicate with IV Ativan and Haldol to control agitation. At this time, patient can not be unrestrained. Reviewed with primary nurse, GREG,
and attending. [facility] will not likely accept a patient back unless they are unrestrained for 24 hours. In addition, agitation will need to be able to be controlled with oral medications. If unrestrained is not doable and agitation cant be controlled
with oral medications, patient may then qualify for inpatient hospice. I called and spoke to daughter Jie. She understands and is in agreement with monitoring patient over the next 12-24 hours and see how patient does. Hospice will continue to
follow. Jie and sister are in agreement with hospice services. CM, primary nurse, and attending all updated.
--- NOTE | 2024-05-01 15:49 | PTCARENOTE ---
At this point have been unable to remove restraints. Needing 3 staff members to change and reposition patient. Medicated with IV haldol, patient seems a little more calm will reassess soon.
--- NOTE | 2024-05-01 16:44 | CHAP ---
Mr. Villa was awake, but seemed confused and agitated. Emotional and spiritual support provided.
[2024-05-01] MEDS: D5/0.45%NACL 1000 IV (17:30)
[2024-05-01] MEDS: LOVENOX 40 MG SC (18:48)
--- NOTE | 2024-05-01 22:18 | PTCARENOTE ---
Assumed care of Pt at shift change; Removed restraints, changed and adjusted Pt. Improved demeanor; Severely confused at baseline with garbled speech. Pt not aggressive at this time, restraints left off. Allowed this nurse to provide care
without issue. Will continue to monitor and assess.
[2024-05-02] VITALS: BP 146/112
[2024-05-02] MEDS: DUONEB 3 ML INH ×3 (00:31→14:00)
[2024-05-02] MEDS: FLAGYL 500 MG 100 IV ×2 (01:17→09:41)
[2024-05-02] MEDS: D5/0.45%NACL 1000 IV (01:18)
[2024-05-02] MEDS: HALDOL 2 MG IV (01:19)
--- NOTE | 2024-05-02 02:13 | PTCARENOTE ---
Increased agitation at times, can be combative. Restraints remain off and Pt given time to calm down when agitated. Haldol administered for same. Speech garbled and Pt very confused with moments of lucidity. Removes oxygen periodically but will
allow nurse to put back on. SpO2 ~ 94% on 4L. Will continue to monitor and assess.
[2024-05-02 03:24] VITALS: BMI 24.3
[2024-05-02 04:37] VITALS: BP 153/45
[2024-05-02 06:00] VITALS: BP 152/101
[2024-05-02 08:00] VITALS: BP 149/134
[2024-05-02] MEDS: EXELON PATCH 9.5 MG TRANSDERM (08:55)
[2024-05-02] MEDS: STERILE WATER FOR INJECTION 10 ML IV (08:56)
[2024-05-02] MEDS: ROCEPHIN 1000 MG IV (08:56)
[2024-05-02] MEDS: ASPIRIN 300 MG RECTAL (08:56)
[2024-05-02] MEDS: DEPACON 51.25 MG IV (09:41)
[2024-05-02 10:00] VITALS: BP 148/97
--- NOTE | 2024-05-02 10:43 | W.PN.HOSP.TC ---
Addendum entered and electronically signed by Cris Hudson MD 05/02/24 15:56:
Dictation- [id number]
Original Note:
Today's Communication/Plan
-
Start a diet
Stop steroids
Seroquel and meds for comfort
Assessment / Plan
Assessment / Plan
83-year-old male with respiratory distress. He was also noted to have audible gurgling at [facility] and a fever. Saturations were in the mid 80s
CVS: S1-S2 normal
Chest:coarse BS bilateral, upper , rhonchi coarse B/L
Abdomen: Soft, NT / Bowel sounds present
Extremities: No edema, normal pulses
BIG DATA ANALYTICS LEAD:Dementia, restless
# Acute hypoxic respiratory failure
Secondary to aspiration pneumonitis
Saturations were in the 80s on arrival
Patient improved on high flow nasal cannula-avoiding BiPAP given agitation
Titrate and wean oxygen down as tolerated
On ceftriaxone and Flagyl
Speech therapy evaluation- NPO recommended
Blood cultures and urine cultures neg
With rhonchi low-dose of steroids added
Now that he is on hospice ,
# Lactic acidosis-resolved
# Acute kidney injury-creatinine improved
# Lewy body dementia with behavioral disturbance
On rivastigmine-changed to patch
Start prn Seroquel
# Hyperlipidemia-statin intolerant
# Coronary artery disease-[place] in 2009-Stop ASA
# History of CVA-October 2014 status post tPA-TIA in 2014
# COPD
# Ambulatory dysfunction
# Neurofibromatosis
# Anxiety and depression-clonazepam, sertraline- when can take PO
Depakote IV
# Insomnia-continue melatonin
# Ex Smoker
# DVT prophylaxis
# DNR
D/W RN
Spoke to daughter who is Ok with Hospice. Discussed about stopping meds not absolutely needed.
She wants him comfortable.
Will start PRN Seroquel, prn Ativan and try and keep off restraints so he canbe discharged to [facility]
D/W Hospice and case management
Tike spent over 50 min
Anticipated Discharge: Within 24 hours
Subjective/Interval History
-
Date of Service: May 02, 2024
Objective Data
-
Vital Signs:
Vital Signs
Temp Pulse Resp BP Pulse Ox
98.4 F 86 15 149/134 93
05/02/24 07:17 05/02/24 09:00 05/02/24 09:00 05/02/24 08:00 05/02/24 10:01
I&O
05/01/24 05/02/24 05/03/24
06:59 06:59 06:59
Intake Total 1160 / 1160 780 / 780
Output Total 250 / 250
Balance 910 / 910 780 / 780
[2024-05-02] MEDS: ATIVAN 0.5 MG IV (11:45)
[2024-05-02] MEDS: NSS (PRESERVATIVE FREE) 0.25 ML IV (11:45)
--- NOTE | 2024-05-02 11:49 | HOSPNOTE ---
Patient will be admitted [facility] level of hospice care today. Consents are being signed electronically by daughter Anabella. Bed requested for [address] [facility] level of hospice care for the management of dyspnea, pain, anxiety and agitation that could not be
managed in the outpatient setting. Discharge planning continues. Primary nurse, attending and CM aware.
[2024-05-02 12:00] VITALS: BP 150/97
--- NOTE | 2024-05-02 13:14 | PN.CDI ---
CDI
- -
CDI:
Physician Documentation Request
Admit Date: 04/28/24 01:17
Dear Doctor Becca,
Patient admitted with acute hypoxic respiratory failure secondary to aspiration pneumonitis.
Troponin resulted as follows:
Laboratory Tests
04/28/24 04/28/24
14:19 19:55
Troponin I 0.063 H* 0.053 H*
Could you please provide a diagnosis that supports the above lab abnormalities and additional evaluation,/ monitoring:
Nonischemic myocardial injury
Type II [place] demand ischemia
Other
Use of terms such as suspected, likely, concern for, or probable (associated with a specific diagnosis that is being evaluated, monitored, or treated as if it exists) are acceptable and can be coded in the inpatient setting, when documented at the
time of discharge.
Thank you,
Ysabel Muniz RN, BSN
CDI Specialist
tiger text
Please use your independent medical judgment in providing your response.
--- NOTE | 2024-05-02 13:22 | PN.CDI ---
CDI
- -
CDI:
Physician Documentation Request
Admit Date: 04/28/24 01:17
Dear Doctor Becca,
Clinical Indicators:
The diagnosis of supraventricular tachycardia was included in the signed EKG on 04/27.
Please indicate in your progress notes if you are in agreement that the above diagnosis is valid for this patient:
____ - supraventricular tachycardia is a valid diagnosis (Please include it in your progress notes)
____ - supraventricular tachycardia is not a valid diagnosis for this patient
____ - Other
Use of terms such as suspected, likely, concern for, or probable are acceptable for a diagnosis that is being evaluated, monitored or treated as if it exists and can be coded in the inpatient setting, when documented at the time of discharge.
Thank you,
Ysabel Muniz RN, BSN
CDI Specialist
[place] text
Please use your independent medical judgment in providing your response.
--- NOTE | 2024-05-02 14:50 | CM ---
Patient with Dx Acute hypoxic respiratory failure, Secondary to aspiration pneumonitis. O2 3L. Regular diet. Medsitter. Per nurse assessment; confused, restless.
Met with patient who was too confused for conversation. Eye closed and moving restlessly in bed.
Spoke with daughter Anabella, who lives in [place]; she is trying to get a flight here to visit her father, who she said is her hero - he is a retired patrol police lieutenant. Her sister plans on coming in tomorrow. She is asking for a node js developer to see him--->
message to Chaplain Jesi.
Spoke with [facility]; they need the patient to be calmer in order for him to return. Update provided that patient will stay here in [facility] for now, with the hope he will be able to return to [facility] later.
Messages with [facility]; patient will start [facility] today.
Plan [facility], with possible re-eval to return to [facility] once restlessness improves.
--- NOTE | 2024-05-02 15:35 | PTCARENOTE ---
Patient's chart flipped to Hospice.
== END 2024-05-02 14:28 | disposition hospice, home (50) | DRG 177 ==
LOC: IMU 01:17
PROVIDERS: ADMITTING PHYSICIAN Hospitalist; ATTENDING PHYSICIAN Hospitalist; EMERGENCY PHYSICIAN Emergency Medicine
DX: J69.0 Pneumonitis due to inhalation of food and vomit (principal); J96.01 Acute respiratory failure with hypoxia; F02.C18 Dementia in other diseases classified elsewhere, severe, with other behavioral disturbance; E87.20 Acidosis, unspecified; F02.C4 Dementia in other diseases classified elsewhere, severe, with anxiety; N17.9 Acute kidney failure, unspecified; I5A Non-ischemic myocardial injury (non-traumatic); Z11.52 Encounter for screening for COVID-19; J98.4 Other disorders of lung; N18.9 Chronic kidney disease, unspecified; I12.9 Hypertensive chronic kidney disease with stage 1 through stage 4 chronic kidney disease, or unspecified chronic kidney disease; G31.83 Neurocognitive disorder with Lewy bodies; I25.10 Atherosclerotic heart disease of native coronary artery without angina pectoris; I25.2 Old myocardial infarction; Z86.73 Personal history of transient ischemic attack (TIA), and cerebral infarction without residual deficits; J44.9 Chronic obstructive pulmonary disease, unspecified; Z66 Do not resuscitate
CPT/HCPCS: 51701; 71045; 80048; 80053; 81003; 81015; 83605; 83735; 84484; 85025; 85027; 87040; 87070; 87086; 87502; 87811; 92526; 92610; 93005; 94640; 94660; 94667; 94668; 94760; 96361; 96365; 99285

== ENCOUNTER 2024-05-02 14:53 | Inpatient (IN) | payer OTHER, SELFPAY ==
--- NOTE | 2024-05-02 15:07 | HPS.HSE ---
Family Physician
-
Family Physician: INTERVIEWE UNKNOWN - PT NOT
Chief Complaint
-
hospice
History of Present Illness
Patient is an 83y M Patient reportedly noted to have 'audible gurgling' at [place] . He was admitted and then failed speech and swallow evaluation. He had audible wheezing steroids were added and he got more agitated. Family decided to make him
hospice. He is agitated therefore admitted to inpatient hospice for behavioral management prior to discharging him to rehab
Medical History
Past Medical History
Past Medical History: Reports Other
Additional Past Medical History:
Lewy Body Dementia with Behavioral Disturbance
ASCVD
COPD
Ambulatory dysfunction
Neurofibromatosis
Anxiety and depression
Insomnia
Past Surgical History: Reports Other
Additional Past Surgical History:
Unknown
Social History
Tobacco: Former Smoker
Family History
Family History: Unable to Obtain
Allergies / Home Medications
Allergies reflects when Allergies were last updated in [facility].
Home Medications with original date entered in [facility]
Allergy/Medication List:
Allergies
Allergy/AdvReac Type Severity Reaction Status Date / Time
crab Allergy Unknown Unknown Verified 01/09/23 14:47
amoxicillin trihydrate Allergy Unknown Verified 01/09/23 14:47
[From Augmentin]
erythromycin base Allergy Unknown Verified 01/09/23 14:47
potassium clavulanate Allergy Unknown Verified 01/09/23 14:47
[From Augmentin]
Lrdcayx-CTL-ZuX Reductase Allergy 'muscle Verified 01/09/23 14:47
Inhibitor pain'
[Inndpdf-Nea-Wxp Reductase
Inhibitor]
Home Medications
aspirin 81 mg chewable tablet 81 mg PO DAILY Blood clot prevention/tx 07/28/18
acetaminophen 325 mg tablet (Tylenol) 650 mg PO Q4HPRN PRN mild pain/fever>100.4 01/09/23
bisacodyl 10 mg rectal suppository (Dulcolax (bisacodyl)) [address] DAILYPRN PRN if no bm on 3rd day/if mom is ineffective 01/09/23
clonazepam 0.5 mg tablet 0.5 mg PO TID Mental Health/Anxiety 01/09/23
divalproex 125 mg capsule,delayed release sprinkle 125 mg PO BID@0830,1830 Seizures 01/09/23
magnesium hydroxide 400 mg/5 mL oral suspension (Milk of Magnesia) 2,400 mg PO HSPRN PRN if no bm aftr miralax 01/09/23
melatonin 3 mg tablet 3 mg PO HS Sleep 01/09/23
polyvinyl alcohol-povidone (PF) 1.4 %-0.6 % eye drops in a dropperette (Refresh Classic (PF)) 1 drops BOTH EYES QID Eye condition 01/09/23
rivastigmine tartrate 3 mg capsule 3 mg PO BID Neurological Condition 01/09/23
sertraline 50 mg tablet 50 mg PO DAILY Depression 01/09/23
Ativan Gel 1 applic topical BIDPRN PRN anxiety 04/27/24
atropine 1 % eye drops 2 drp sublingual Q4HPRN PRN secretions 04/27/24
guaifenesin 100 mg/5 mL oral liquid 200 mg PO Q8H 04/27/24
ipratropium 0.5 mg-albuterol 3 mg (2.5 mg base)/3 mL nebulization soln 3 ml inhalation R Q6 04/27/24
sertraline 100 mg tablet 100 mg PO DAILY 04/27/24
Review of Systems
-
Unable to obtain full review of systems at this time due to: Dementia
Physical Exam
Physical Exam
General: No Apparent Distress
Respiratory: Rhonchi
Cardiac: S1/S2 and Regular Rhythm
GI: Soft, Non Tender and Normal Bowel Sounds
Neuro: Awake
Psych: Confused and Apparent Dementia
Impression/Plan
-
IMPRESSION/PLAN:
Assessment
#Acute hypoxic respiratory failure secondary to aspiration pneumonitis
# Lewy body dementia with behavioral disturbance
# Hyperlipidemia
# Coronary artery disease with history of [place] in 2009
# History of CVA October 2014
# COPD
# Ambulatory dysfunction
# Anxiety and depression
# Insomnia
# Ex-smoker
# DNR status
Plan
Treat symptoms
Added Seroquel for as needed symptom control
Continue outpatient medicines and also Ativan as needed
Once behaviors at baseline we can discharge him back to [facility]
[2024-05-02 15:14] VITALS: BP 172/79
--- NOTE | 2024-05-02 15:36 | PTCARENOTE ---
Patient's chart flipped from IMU to [facility] hospice. Pt as assessed. Report given to [facility] and patient will be moved.
[2024-05-02 16:15] VITALS: BP 153/89
[2024-05-02] MEDS: ATIVAN 0.5 MG PO (17:21)
[2024-05-02] MEDS: ROBITUSSIN 200 MG PO (17:21)
--- NOTE | 2024-05-02 17:38 | HOSPNOTE ---
Patient has been admitted GIP level of hospice care. He is [facility] level of care for the management of agitation and anxiety that could not be managed in the outpatient setting. He required IV Ativan and IV Haldol earlier today to control these
symptoms. At this time patient has been transferred to [address] [place] [address] to room 2137. Informal report with KALYAN Lopez. Dr. Hudson would like to try patient with oral medication to control agitation and anxiety in an attempt to see if patient can transfer back
to [facility] on hospice care. Patient upon transferring to [address] [place] [address] was restless, anxious and moving lower extremities in the bed. He was only able to be redirected slightly. He is awake and alert, oriented to himself only. Words are able to be
understood intermittently but overall is not able to hold a conversation. Ativan 0.5 mg given po with applesauce and thickned water. Patient tolerated this and is currently laying in bed. Will monitor and see if the oral route of medication
administration is effective. Jessica ordered patient a puree dinner tray with thickened liquids. Hospice will continue to follow daily while patient is inpatient hospice. Discharge planning continues. Update provided to daughter Anabella over the phone.
Daughter Jie plans to visit patient tomorrow. Anabella is working on arranging a flight up from [place] to see patient as well.
[2024-05-02] MEDS: ATIVAN 0.5 MG IV ×2 (18:05→22:02)
--- NOTE | 2024-05-02 18:30 | HOSPNOTE ---
After 40 minutes of patient taking oral Ativan, he still remained restless and agitated in the bed. He was moving his extremities, putting leg over the side of the bed, unable to be redirected. Ativan 0.5 mg IVP PRN given. Patient then repositioned
and fed dinner. He ate 100% of the puree food. He drank a few sips of thickened apple and orange juice. He did not like that as much as the thickened water. He then drank a few more sips of thickend water. Patient then observed to start to close his
eyes. TV turned on for background noise. Delayed cough noted. Jessica present at bedside and updated as well. Hospice will see patient again tomorrow. Daughter Anabella updated via phone as well.
[2024-05-02] MEDS: EXELON PATCH 4.59999999999999964 MG TRANSDERM (18:35)
[2024-05-02] MEDS: ROBITUSSIN PO ×2 (21:56→22:16)
[2024-05-02] MEDS: NSS (PRESERVATIVE FREE) 0.25 ML IV (22:02)
[2024-05-02] MEDS: HALDOL 1 MG IV (23:01)
[2024-05-02] MEDS: DEPACON 51.5 MG IV (23:02)
[2024-05-02 23:45] VITALS: BP 129/74
[2024-05-03] MEDS: MORPHINE SULFATE 2 MG IV ×7 (00:24→22:43)
[2024-05-03] MEDS: ATIVAN 0.5 MG IV ×5 (01:06→23:18)
[2024-05-03] MEDS: ROBINUL 0.200000000000000011 MG IV (01:07)
[2024-05-03] MEDS: NSS (PRESERVATIVE FREE) 0.25 ML IV ×5 (01:07→23:19)
[2024-05-03] MEDS: ROBITUSSIN PO ×4 (07:33→22:04)
[2024-05-03 07:35] VITALS: BP 138/74
[2024-05-03] MEDS: EXELON PATCH 4.59999999999999964 MG TRANSDERM (09:16)
--- NOTE | 2024-05-03 09:18 | CHAP ---
Addendum entered by Stefania Hansen 05/04/24 09:56:
Father Mehul did come and give Khadar the Sacrament of the Sick. Time uncertain.
Original Note:
Father Vignesh Carver of [facility] in [place] plans to arrive around 12:30 today to give the Sacrament of the Sick to Khadar. If he should be needed earlier than that, please reach out to the Pastoral Care Department at
extension [phone].
[2024-05-03] MEDS: DEPACON 51.5 MG IV ×2 (09:33→22:04)
--- NOTE | 2024-05-03 09:41 | W.PN.UPDATE ---
Update Note
Progress Note Update
Patient sleepy this morning. Per discussion with nursing he needed multiple doses of medicines overnight to keep him calmer.
Assessment
#Acute hypoxic respiratory failure secondary to aspiration pneumonitis
# Lewy body dementia with behavioral disturbance
# Hyperlipidemia
# Coronary artery disease with history of MD in 2009
# History of CVA October 2014
# COPD
# Ambulatory dysfunction
# Anxiety and depression
# Insomnia
# Ex-smoker
# DNR status
Plan
Treat symptoms
Currently on as needed morphine, Ativan, Seroquel if patient cannot take p.o.
If patient is calmer trial of p.o. medicines
P.o. diet for pleasure
Discussed with nursing
--- NOTE | 2024-05-03 11:32 | HOSPNOTE ---
Patient can become extremely agitated and needs IV medications. At the time of visit no family present and daughter updated per notes. Patient will continue to remain inpatient hospice for agitation. Patient will be seen daily by hospice nurse.
--- NOTE | 2024-05-03 12:26 | HOSPNOTE ---
Khadar was sleeping, non-responsive. He appeared to be comfortable, twitching occasionally. No family was present. Equal Opportunity Specialist provided emotional and spiritual support, offering words of comfort and prayer. Fr. Carver came shortly after and
provided Sacrament of the Sick, as requested by daughter.
[2024-05-03 19:21] VITALS: BP 106/42
[2024-05-04] MEDS: MORPHINE SULFATE 2 MG IV ×6 (02:26→22:15)
[2024-05-04 07:47] VITALS: BP 135/65
[2024-05-04] MEDS: EXELON PATCH 4.59999999999999964 MG TRANSDERM (08:12)
[2024-05-04] MEDS: ROBITUSSIN PO ×2 (08:12→12:24)
[2024-05-04] MEDS: DEPACON 51.5 MG IV (09:37)
[2024-05-04] MEDS: NSS (PRESERVATIVE FREE) 0.25 ML IV ×5 (09:37→22:13)
[2024-05-04] MEDS: ATIVAN 0.5 MG IV ×5 (09:37→22:13)
--- NOTE | 2024-05-04 12:25 | HOSPNOTE ---
Patient remains GIP level of hospice care for the management of pain, dyspnea, anxiety and agitation that could not be managed in the outpatient setting. Patient has needed PRN doses of IV morphine and Ativan. Patient has also needed PRN doses of IV
Robinul for excessive secretions. Patient currently today is actively dying. He is unresponsive. He shows a flacc score of 1, mild pain. He is being medicated with morphine prn for pain control. He has periods of apnea lasting up to 20 seconds also
noted. Nail beds are cyanotic and dusky in color. Extremities are cool to touch. Abdomen is WNL. Incontinent of a bowel movement last 05/02. Last po intake was 05/02. Mouth care provided. Rodrigues draining layla colored urine, placed on 05/03. Skin
intact. Turned and repositioned. Called and spoke to daughter Anabella. Reviewed changes noted with patient and reviewed that actively dying is occurring. Encouraged her to come see patient soon rather than later. Reviewed if patient passes before her
arrival it is what he chose, she verbalized understanding. She was going to update her sister and brother as well. Informal report with KALYAN Li. Patient will continue to be seen daily by hospice.
--- NOTE | 2024-05-04 13:11 | W.PN.HOSP.TC ---
Today's Communication/Plan
-
Continue hospice care
Assessment / Plan
Assessment / Plan
Gen-sedated, unarousable
HEENT-NC, AT, anicteric, clear oral mm
Neck-supple
CV-reg, no M, +S1/S2
Lungs-clear B/L
Abd-soft, NT, ND
Ext-no edema
Musculoskeletal-no cyanosis, clubbing
Skin-warm and dry
End-of-life care -continue hospice services. Discontinue unnecessary medications. N.p.o., high aspiration risk. Unable to swallow meds due to significant somnolence.
Patient appears to be imminent but comfortable. Continue as needed morphine. Can transition to drip if needed.
DNR
Anticipated Discharge: Within 24 hours
Subjective/Interval History
-
Date of Service: May 04, 2024
Patient seen and examined. Looks comfortable. Unarousable.
Objective Data
-
Vital Signs:
Vital Signs
Temp Pulse Resp BP Pulse Ox
98.2 F 77 14 135/65 78
05/04/24 07:47 05/04/24 07:47 05/04/24 07:47 05/04/24 07:47 05/04/24 11:29
I&O
05/03/24 05/04/24 05/05/24
06:59 06:59 06:59
Intake Total 180 / 180
Output Total 605 / 605
Balance 180 / 180 -605 / -605
Review of Systems
-
Unable to obtain full review of systems at this time due to: Dementia and Acuity
--- NOTE | 2024-05-04 16:19 | CM ---
patient continues with gip hospice,unresponsive,comfortable,iv morphone-can transition to morphine gtt.
[2024-05-04 19:45] VITALS: BP 123/59
[2024-05-04 23:41] VITALS: BP 129/63
[2024-05-05] MEDS: MORPHINE SULFATE 2 MG IV ×6 (02:16→21:21)
[2024-05-05] MEDS: ATIVAN 0.5 MG IV ×3 (06:37→15:37)
[2024-05-05] MEDS: NSS (PRESERVATIVE FREE) 0.25 ML IV ×3 (06:39→15:35)
[2024-05-05 07:35] VITALS: BP 140/65
[2024-05-05] MEDS: ROBINUL 0.200000000000000011 MG IV ×2 (10:39→17:45)
--- NOTE | 2024-05-05 12:33 | HOSPNOTE ---
Patient remains GIP inpatient hospice for the management of pain,dyspnea and agitation. These symptoms could not be managed in the outpatient setting. He has required the use of morphine IVP PRN and ativan IVP PRN to control symptoms. At this time,
he is actively dying. Minimally responsive. Nail beds are dusky in color and mottling noted to bilateral knees. Informal report with Mary Lopez, will continue on current regimen. Voicemail left for daughter Anabella to provide an update. Emotional
support provided. Hospice will continue to visit daily.
--- NOTE | 2024-05-05 12:35 | W.PN.HOSP.TC ---
Today's Communication/Plan
-
Continue hospice care
Assessment / Plan
Assessment / Plan
Gen-sedated, unarousable
HEENT-NC, AT, anicteric, clear oral mm
Neck-supple
CV-reg, no M, +S1/S2
Lungs-clear B/L
Abd-soft, NT, ND
Ext-no edema
Musculoskeletal-no cyanosis, clubbing
Skin-warm and dry
End-of-life care -continue hospice services. Discontinue unnecessary medications. N.p.o., high aspiration risk. Unable to swallow meds due to significant somnolence.
Patient appears to be imminent but comfortable. Continue as needed morphine. Can transition to drip if needed.
No changes overnight. Discussed with nursing.
DNR
Anticipated Discharge: 24 - 48 hours
Subjective/Interval History
-
Date of Service: May 05, 2024
Patient seen and examined. Remains unarousable.
Objective Data
-
Vital Signs:
Vital Signs
Temp Pulse Resp BP Pulse Ox
99.3 F 70 12 140/65 83
05/05/24 07:35 05/05/24 07:35 05/05/24 07:35 05/05/24 07:35 05/05/24 07:35
I&O
05/04/24 05/05/24 05/06/24
06:59 06:59 06:59
Output Total 605 / 605 450 / 450
Balance -605 / -605 -450 / -450
Review of Systems
-
Unable to obtain full review of systems at this time due to: Acuity
--- NOTE | 2024-05-05 12:38 | HOSPNOTE ---
Update: Daughter Anabella called back. She has decided to not come up from [place]. She felt she is okay as she saw him last week and that is how she would like to remember. Her brother feels the same, he does not want to come up and watch him pass. They
want to remember him the way that he was. Their sister Jie visited patient yesterday. They are all in agreement for patient to pass peacefully.
[2024-05-05 19:25] VITALS: BP 142/74
[2024-05-06] MEDS: MORPHINE SULFATE 2 MG IV ×5 (01:01→13:22)
[2024-05-06] MEDS: ROBINUL 0.200000000000000011 MG IV ×4 (01:02→16:26)
[2024-05-06 07:34] VITALS: BP 171/75
[2024-05-06] MEDS: NSS (PRESERVATIVE FREE) 0.25 ML IV ×2 (07:51→12:11)
[2024-05-06] MEDS: ATIVAN 0.5 MG IV ×2 (07:51→12:11)
--- NOTE | 2024-05-06 11:27 | W.PN.HOSP.TC ---
Today's Communication/Plan
-
Continue hospice care
Assessment / Plan
Assessment / Plan
Gen-sedated, unarousable
HEENT-NC, AT, anicteric, clear oral mm
Neck-supple
CV-reg, no M, +S1/S2
Lungs-clear B/L
Abd-soft, NT, ND
Ext-no edema
Musculoskeletal-no cyanosis, clubbing
Skin-warm and dry
End-of-life care -continue hospice services. Discontinue unnecessary medications. N.p.o., high aspiration risk. Unable to swallow meds due to significant somnolence.
Patient appears to be imminent but comfortable. Continue as needed morphine. Can transition to drip if needed.
No changes overnight. Discussed with nursing.
DNR
Anticipated Discharge: Within 24 hours
Subjective/Interval History
-
Date of Service: May 06, 2024
Patient seen and examined. Looks comfortable. Unarousable.
Objective Data
-
Vital Signs:
Vital Signs
Temp Pulse Resp BP Pulse Ox
96.2 F L 78 16 171/75 87
05/06/24 07:34 05/06/24 07:34 05/06/24 07:34 05/06/24 07:34 05/06/24 09:58
I&O
05/05/24 05/06/24 05/07/24
06:59 06:59 06:59
Intake Total 0 / 0
Output Total 450 / 450 425 / 425
Balance -450 / -450 -425 / -425
Review of Systems
-
History Source: Patient
All other systems: Reviewed and negative
--- NOTE | 2024-05-06 12:28 | CM ---
call from hospice that patient will be started on morphine gtt.cont iv ativan.patient remains on [facility] hospice.
--- NOTE | 2024-05-06 12:28 | HOSPNOTE ---
Patient remains GIP level of hospice care for the management of pain, dyspnea and agitation that could not be managed in the outpatient setting. Patient is presently receiving Morphine IVP Q1h PRN- reviewed morphine infusion appears to be warranted,
infusion protocol ordered. Patient continues to receive Ativan IVP for agitation/anxiety. Patient has an increase in terminal secretions, IVP Robinul given PRN. Patient also turned and repositioned onto his side to help with postural drainage.
Informal report with Mary Li, she is in agreement with plan. Called and spoke to daughter Anabella, provided update. She is thankful for the care and support. Reviewed hospice will continue to visit daily.
[2024-05-06] MEDS: MORPHINE 100 IV (14:16)
[2024-05-06 23:37] VITALS: BP 119/66
[2024-05-07] MEDS: ROBINUL 0.200000000000000011 MG IV ×4 (04:39→20:11)
[2024-05-07 07:30] VITALS: BP 117/60
[2024-05-07] MEDS: MORPHINE SULFATE 2 MG IV ×2 (09:28→15:46)
[2024-05-07] MEDS: FLUSH (NSS) 2 FLUSH IV (09:30)
--- NOTE | 2024-05-07 12:07 | W.PN.HOSP.TC ---
Today's Communication/Plan
-
Continue hospice care
Assessment / Plan
Assessment / Plan
Gen-sedated, unarousable
HEENT-NC, AT, anicteric, clear oral mm
Neck-supple
CV-reg, no M, +S1/S2
Lungs-clear B/L
Abd-soft, NT, ND
Ext-no edema
Musculoskeletal-no cyanosis, clubbing
Skin-warm and dry
End-of-life care -continue hospice services. Discontinue unnecessary medications. N.p.o., high aspiration risk. Unable to swallow meds due to significant somnolence.
Patient appears to be imminent but comfortable. Now on IV morphine drip, 2 mg/h. Titrate to comfort.
No changes overnight. Discussed with nursing.
DNR
Anticipated Discharge: Within 24 hours
Subjective/Interval History
-
Date of Service: May 07, 2024
Patient seen and examined. Remains unresponsive. Shallow agonal breathing.
Objective Data
-
Vital Signs:
Vital Signs
Temp Pulse Resp BP Pulse Ox
98.2 F 82 14 117/60 96
05/07/24 07:30 05/07/24 07:30 05/07/24 07:30 05/07/24 07:30 05/07/24 08:00
I&O
05/06/24 05/07/24 05/08/24
06:59 06:59 06:59
Intake Total 0 / 0
Output Total 425 / 425 800 / 800
Balance -425 / -425 -800 / -800
Review of Systems
-
Unable to obtain full review of systems at this time due to: Acuity
--- NOTE | 2024-05-07 13:08 | HOSPNOTE ---
Received report from Caty.Patient continues to be imminent.Had rubinol and prn dose of morphine at 9:30.Received patient in bed unresponsive.Skin warm and dry color pale.Agonal breathing noted.Rodrigues patient for dk layla urine.About 50 CC in bag
at time of visit.Last emptied at 7 am for 800 cc of urine .Patient given sponge bath and repositioned.Imminent status remains.GIP remains for symptom /pain management. t- 98.4,res 8 with apnea periods, Pulse 64.D/c planning continues.
[2024-05-07] MEDS: FLUSH (NSS) 1 FLUSH IV (15:46)
[2024-05-07 20:07] VITALS: BP 120/56
[2024-05-08] MEDS: ROBINUL 0.200000000000000011 MG IV ×2 (01:12→08:46)
[2024-05-08] MEDS: MORPHINE 100 IV (04:13)
[2024-05-08 07:20] VITALS: BP 118/61
[2024-05-08] MEDS: FLUSH (NSS) 2 FLUSH IV (08:47)
[2024-05-08] MEDS: MORPHINE SULFATE 2 MG IV (08:48)
--- NOTE | 2024-05-08 10:08 | W.PN.HOSP.TC ---
Today's Communication/Plan
-
Tylenol [place] as needed
Assessment / Plan
Assessment / Plan
Gen-sedated, unarousable
HEENT-NC, AT, anicteric, clear oral mm
Neck-supple
CV-reg, no M, +S1/S2
Lungs-clear B/L
Abd-soft, NT, ND
Ext-no edema
Musculoskeletal-no cyanosis, clubbing
Skin-warm and dry
End-of-life care -continue hospice services. Discontinue unnecessary medications. N.p.o., high aspiration risk. Unable to swallow meds due to significant somnolence.
Patient appears to be imminent but comfortable. Now on IV morphine drip, 2 mg/h. Titrate to comfort.
Fevers overnight. Rectal Tylenol as needed. Discussed with nursing.
DNR
Anticipated Discharge: Within 24 hours
Subjective/Interval History
-
Date of Service: May 08, 2024
Patient seen and examined. Looks comfortable. Unarousable.
Objective Data
-
Vital Signs:
Vital Signs
Temp Pulse Resp BP Pulse Ox
98.8 F 81 12 118/61 86
05/08/24 07:20 05/08/24 07:20 05/08/24 07:20 05/08/24 07:20 05/08/24 08:00
I&O
05/07/24 05/08/24 05/09/24
06:59 06:59 06:59
Output Total 800 / 800 400 / 400
Balance -800 / -800 -400 / -400
Review of Systems
-
Unable to obtain full review of systems at this time due to: Acuity
--- NOTE | 2024-05-08 12:29 | HOSPNOTE ---
Patient is GIP level of hospice care. Patient meets [facility] level of care for the management of pain and dyspnea that can not be managed in the outpatient setting. Patient is on a Morphine drip at 2 mg/hr. Patient has needed 1 IVP PRN Morphine this
morning. Patient has not used Ativan IVP since 05/06. Patient is unresponsive and actively dying. Flacc score of 0 noted. Patient with terminal secretions- IV Robinul PRN given. Hands and nail beds are cyanotic and dusky in color. Slight mottling
noted to left knee. Rodrigues is draining layla urine with decreased overall output. Informal report with KALYAN Browning, agrees with continuing current regimen. Update given to daughter Anabella over the phone. Emotional support provided. Patient will continue
to be seen daily.
[2024-05-08 19:51] VITALS: BP 120/58
[2024-05-09 07:35] VITALS: BP 125/66
--- NOTE | 2024-05-09 08:27 | W.PN.HOSP.TC ---
Today's Communication/Plan
-
cont comfort care
Assessment / Plan
Assessment / Plan
Gen-sedated, unarousable
HEENT-NC, AT, anicteric, clear oral mm
Neck-supple
CV-reg, no M, +S1/S2
Lungs-clear B/L
Abd-soft, NT, ND
Ext-no edema
Musculoskeletal-no cyanosis, clubbing
Skin-warm and dry
A/P:
End-of-life care -continue hospice services. Discontinue unnecessary medications. N.p.o., high aspiration risk. Unable to swallow meds due to significant somnolence.
Patient appears to be imminent but comfortable. Now on IV morphine drip, 2 mg/h. Titrate to comfort.
Rectal Tylenol as needed. Discussed with nursing today.
DNR
Anticipated Discharge: 24 - 48 hours
Subjective/Interval History
-
Date of Service: May 09, 2024
pte seen and examined
Objective Data
-
Vital Signs:
Vital Signs
Temp Pulse Resp BP Pulse Ox
98.5 F 81 12 125/66 86
05/09/24 07:35 05/09/24 07:35 05/09/24 07:35 05/09/24 07:35 05/09/24 07:35
I&O
05/08/24 05/09/24 05/10/24
06:59 06:59 06:59
Intake Total 0 / 0
Output Total 400 / 400 525 / 525
Balance -400 / -400 -525 / -525
--- NOTE | 2024-05-09 11:40 | CM ---
Reviewed the chart notes. Patient remains on [facility] Hospice. CM continues to be available to patient/family.
Plan: Comfort care.
[2024-05-09] MEDS: ROBINUL 0.200000000000000011 MG IV (13:36)
--- NOTE | 2024-05-09 14:54 | HOSPNOTE ---
Patient is unresponsive no family present. The patient is on a morphine drip. Patient continues to be inpatient appropriate and will be seen daily.
--- NOTE | 2024-05-09 18:17 | PTCARENOTE ---
Pt continues on Morphine drip step 2. Repositioned q 2hrs. Robinol given x1 during shift with +effects. Safety and comfort measures maintained.
[2024-05-09 20:01] VITALS: BP 113/57
[2024-05-10] MEDS: ROBINUL 0.200000000000000011 MG IV ×2 (03:20→08:53)
[2024-05-10] MEDS: NSS (PRESERVATIVE FREE) 0.25 ML IV ×3 (03:24→16:31)
[2024-05-10] MEDS: ATIVAN 0.5 MG IV ×3 (03:25→16:32)
[2024-05-10] MEDS: MORPHINE SULFATE 2 MG IV ×7 (03:25→16:32)
[2024-05-10] MEDS: MORPHINE 100 IV (04:17)
[2024-05-10 07:30] VITALS: BP 110/90
--- NOTE | 2024-05-10 08:54 | W.PN.HOSP.TC ---
Today's Communication/Plan
-
cont comfort care
Assessment / Plan
Assessment / Plan
Gen-sedated, unarousable
HEENT-NC, AT, anicteric, clear oral mm
Neck-supple
CV-reg, no M, +S1/S2
Lungs-clear B/L
Abd-soft, NT, ND
Ext-no edema
Musculoskeletal-no cyanosis, clubbing
Skin-warm and dry
A/P:
End-of-life care -continue hospice services. Discontinue unnecessary medications. N.p.o., high aspiration risk. Unable to swallow meds due to significant somnolence.
Patient appears to be imminent but comfortable. Now on IV morphine drip, 2 mg/h. Titrate to comfort.
Rectal Tylenol as needed. Discussed with nursing today.
DNR
Anticipated Discharge: 24 - 48 hours
Subjective/Interval History
-
Date of Service: May 10, 2024
pte seen and examined
Objective Data
-
Vital Signs:
Vital Signs
Temp Pulse Resp BP Pulse Ox
97.9 F 86 16 110/90 77
05/10/24 07:30 05/10/24 07:30 05/10/24 07:30 05/10/24 07:30 05/10/24 07:30
I&O
05/09/24 05/10/24 05/11/24
06:59 06:59 06:59
Intake Total 0 / 0 0 / 0
Output Total 525 / 525 600 / 600
Balance -525 / -525 -600 / -600
--- NOTE | 2024-05-10 13:14 | HOSPNOTE ---
Patient remains GIP for symptom management, requires IV Morphine for management of pain/discomfort. Patient minimally responsive during visit, moved hand to touch, eyes remain closed. Respirations shallow at 8 BPM. Provided an update to patients
daughter Anabella via telephone.
[2024-05-10 15:00] VITALS: BP 117/59
--- NOTE | 2024-05-10 18:06 | PTCARENOTE ---
Pt continues on Morphine drip step 2. Repositioned q 2hrs. pt given complete bed bath. newly documented DTI noted by this nurse on pt R heel. covered and charted. pt received multiple breakthroughs and prn robinul during this shift. See MAR for
proper documentation.
[2024-05-10 20:01] VITALS: BP 105/61
--- NOTE | 2024-05-11 03:58 | DOWNTIME ---
There was a [employer] Downtime on 05/11/2024 from 0100 to 05/11/2024 at 0337. Downtime documentation of patient's care, including medication administrations, has been reconciled in the electronic record per guidelines. Refer to the
patient's paper chart under the miscellaneous tab to see printed paper medication records and downtime forms.
[2024-05-11] MEDS: MORPHINE SULFATE 2 MG IV ×5 (05:15→19:19)
[2024-05-11] MEDS: ROBINUL 0.200000000000000011 MG IV ×3 (05:15→14:06)
[2024-05-11 07:25] VITALS: BP 90/55
--- NOTE | 2024-05-11 08:30 | W.PN.HOSP.TC ---
Today's Communication/Plan
-
Continue comfort care measures
Assessment / Plan
Assessment / Plan
Gen-sedated, unarousable
HEENT-NC, AT, anicteric, clear oral mm
Neck-supple
CV-reg, no M, +S1/S2
Lungs-clear B/L
Abd-soft, NT, ND
Ext-no edema
Musculoskeletal-no cyanosis, clubbing
Skin-warm and dry
A/P:
End-of-life care -continue hospice services. Discontinue unnecessary medications. N.p.o., high aspiration risk. Unable to swallow meds due to significant somnolence.
Patient appears to be imminent but comfortable. Now on IV morphine drip, 2 mg/h. Titrate to comfort.
Rectal Tylenol as needed. Discussed with nursing today.
DNR
Anticipated Discharge: 24 - 48 hours
Subjective/Interval History
-
Date of Service: May 11, 2024
Patient seen and examined.
Objective Data
-
Vital Signs:
Vital Signs
Temp Pulse Resp BP Pulse Ox
99.8 F 88 8 105/61 84
05/10/24 20:01 05/10/24 20:01 05/10/24 20:01 05/10/24 20:01 05/10/24 21:38
I&O
05/10/24 05/11/24 05/12/24
06:59 06:59 06:59
Intake Total 0 / 0
Output Total 600 / 600 400 / 400
Balance -600 / -600 -388 / -388
[2024-05-11] MEDS: ATIVAN 0.5 MG IV ×3 (08:35→16:07)
[2024-05-11] MEDS: NSS (PRESERVATIVE FREE) 0.25 ML IV ×3 (08:35→16:08)
--- NOTE | 2024-05-11 09:59 | CM ---
Reviewed the chart notes. Patient remains on [facility] Hospice. CM continues to be available to patient/family.
Plan: GIP hospice.
--- NOTE | 2024-05-11 10:04 | HOSPNOTE ---
Khadar was sleeping peacefully, non-responsive. No family was present. Esthetician/Owner offered words of comfort at bedside, along with prayers from the [employer]. Will remain available to provide emotional and spiritual support.
--- NOTE | 2024-05-11 12:26 | HOSPNOTE ---
Patient is unresponsive appears comfortable, decreased respiratons, periods of apnea noted, patient continues on a morphine drip and does receive PRN doses prior to care. Patient continues to be inpatient appropriate for titration of medications.
Anabella updated with assessment. Patient will be seen daily by nurse anesthetist.
--- NOTE | 2024-05-11 22:49 | W.PN.DEATH ---
Pronouncement of
-
Called to see patient to pronounce.
No spontaneous heart tones or respirations noted.
Patient not responsive to verbal stimuli.
Patient is pronounced .
Time of : 21:45
Date of : 05/11/24
Family Notified: Yes
--- NOTE | 2024-05-12 08:39 | W.DCSUMMARY ---
Discharge Summary
Discharge Data
Date of Admission: 05/02/24
Date of Discharge: 05/11/24
-
Pending Results: No
Hospital Course
Patient 83 years old male with history of dementia came in with acute hypoxic respiratory failure secondary to aspiration pneumonia. He was started on antibiotics and aspiration precautions and patient failed speech and swallow evaluations. He was
given steroids. Despite aggressive treatment patient continued to deteriorate so after discussions with family patient was made comfort care and he was admitted to inpatient hospice care. Patient was placed on comfort care medications and he
peacefully on 05/11/2024 at 2145. Let his soul rest in peace.
Discharge Plan
-
Patient Disposition:
Date/Time
Date/Time: 05/11/24 21:50
Discharge Date and Time
Discharge Date/Time: 05/11/24 21:45
Print Language: NEPALI
== END 2024-05-11 21:45 | disposition expired | DRG 177 ==
LOC: 2 NORTH 14:53
PROVIDERS: ADMITTING PHYSICIAN Hospitalist; ATTENDING PHYSICIAN Hospitalist
DX: J69.0 Pneumonitis due to inhalation of food and vomit (principal); J96.01 Acute respiratory failure with hypoxia; F02.811 Dementia in other diseases classified elsewhere, unspecified severity, with agitation; F02.818 Dementia in other diseases classified elsewhere, unspecified severity, with other behavioral disturbance; F02.84 Dementia in other diseases classified elsewhere, unspecified severity, with anxiety; F02.83 Dementia in other diseases classified elsewhere, unspecified severity, with mood disturbance; Z51.5 Encounter for palliative care; Z87.891 Personal history of nicotine dependence; E78.5 Hyperlipidemia, unspecified; I25.10 Atherosclerotic heart disease of native coronary artery without angina pectoris; I25.2 Old myocardial infarction; J44.9 Chronic obstructive pulmonary disease, unspecified; F32.A Depression, unspecified; G31.83 Neurocognitive disorder with Lewy bodies; Z66 Do not resuscitate